=== PATIENT | female | born 1995 | race Caucasian/White ===

== ENCOUNTER → 2016-04-01 | Outpatient (CLI) | payer BC ==
--- NOTE | 2016-04-01 10:07 | MR ---
EXAMINATION TYPE: MR brain wo/w con DATE OF EXAM: 04/01/2016 8:17 AM COMPARISON: MRI brain October 19, 2014 HISTORY: Focal seizures, brain tumor removed 6 yrs ago TECHNIQUE: Multiplanar, multisequence images of the brain and brainstem is performed without and with IV contras t, utilizing 10 mL intravenous MultiHance . FINDINGS: Diffusion weighted images demonstrate no evidence of a recent infarct or other diffusion ab normality. There is redemonstration of left temporal resection cavity measuring 5.9 cm anterior post erior dimension by 4.2 cm in transverse dimension on axial image 11 felt stable from prior. Craniocau sean dimension is roughly 2.5 cm on coronal image 15 felt stable. Some focal edema along posterior asp ect remains present. There is no new significant white matter signal abnormality. The ventricular sy stem and cisternal spaces are normal in size and appearance. The brain volume is age appropriate. Midline structures demonstrate normal morphology. The craniocervical junction appears within normal limits. Post contrast images demonstrate no new or abnormal enhancement. The dural venous sinuses ap pear patent. The visualized paranasal sinuses are clear. Globes are more distorted by artifact on cur rent study. IMPRESSION: Postsurgical changes left temporal level redemonstrated and felt stable. No new suspiciou s enhancement or new findings identified.
== END | disposition home or self-care (01) ==
LOC: RADMRIMAIN 07:39
PROVIDERS: ATTEND Family Medicine
DX: G40.109 Localization-related (focal) (partial) symptomatic epilepsy and epileptic syndromes with simple partial seizures, not intractable, without status epilepticus (principal); Z98.890 Other specified postprocedural states
CPT/HCPCS: 70553; A9577

== ENCOUNTER → 2017-01-02 | Outpatient (CLI) | payer BC ==
--- NOTE | 2017-01-02 15:13 | US ---
EXAMINATION TYPE: US thyroid st tissue head/neck DATE OF EXAM: 01/02/2017 COMPARISON: NONE CLINICAL HISTORY: E04.1 THYROID NODULE. Patient feels tired all the time. GLAND SIZE: Right Lobe: 4.7 x 1.5 x 1.6 cm Overall Parenchyma: homogenous Left Lobe: 3.6 x 1.0 x 1.2 cm Overall Parenchyma: Fairly homogeneous Isthmus Thickness: 0.2 cm NODULES RIGHT: # of nodules measured on right: 0 LEFT: # of nodules measured on left: 0 ISTHMUS: # of nodules measured in the isthmus: 0 Bilateral neck scanned, no evidence of lymphadenopathy. Thyroid gland is normal in size and homogeneous in echotexture without suspicious nodules seen. IMPRESSION: Unremarkable study.
== END | disposition home or self-care (01) ==
LOC: RADUSWWP 14:15
PROVIDERS: ATTEND Family Medicine
DX: E04.1 Nontoxic single thyroid nodule (principal)
CPT/HCPCS: 76536

== ENCOUNTER → 2017-08-07 | Outpatient (CLI) | payer BC ==
[2017-08-07 18:38] LABS: Basophils # (A) 0.1 k/uL (0-0.2); Basophils % (A) 1 %; Eosinophils # (A) 0.2 k/uL (0-0.7); Eosinophils % (A) 2 %; HCT 43.6 % (34.0-46.0); HGB 14.9 gm/dL (11.4-16.0); Lymphocytes # (A) 2.7 k/uL (1.0-4.8); Lymphocytes % (A) 35 %; MCHC 34.1 g/dL (31.0-37.0); MCV 90.9 fL (80.0-100.0); Mean Platelet Volume 7.5; Monocytes # (A) 0.3 k/uL (0-1.0); Monocytes % (A) 4 %; Neutrophils # (A) 4.3 k/uL (1.3-7.7); Neutrophils % (A) 56 %; Platelet Count 243 k/uL (150-450); RDW 11.7 % (11.5-15.5); WBC 7.8 k/uL (3.8-10.6)
[2017-08-07 18:52] LABS: ALT 31 U/L (9-52); AST 27 U/L (14-36); Albumin 4.5 g/dL (3.5-5.0); Alkaline Phosphatase 54 U/L (38-126); Anion Gap 15 mmol/L; Blood Urea Nitrogen 11 mg/dL (7-17); Calcium 9.8 mg/dL (8.4-10.2); Carbon Dioxide 22 mmol/L (22-30); Chloride 105 mmol/L (98-107); Glucose 76 mg/dL (74-99); Sodium 142 mmol/L (137-145); Total Bilirubin 0.3 mg/dL (0.2-1.3); Total Protein 7.4 g/dL (6.3-8.2)
[2017-08-07 19:06] LABS: T4, Free (Free Thyroxine) 0.76 ng/dL (0.78-2.19)
== END | disposition home or self-care (01) ==
LOC: LABWHC1 17:24
PROVIDERS: ATTEND Family Medicine
DX: Z00.00 Encounter for general adult medical examination without abnormal findings (principal); D72.829 Elevated white blood cell count, unspecified; R41.840 Attention and concentration deficit
CPT/HCPCS: 36415; 80053; 80183; 84439; 84443; 85025

== ENCOUNTER → 2018-05-01 | Outpatient (CLI) | payer BC ==
--- NOTE | 2018-05-01 09:54 | MR ---
EXAMINATION TYPE: MR brain wo/w con DATE OF EXAM: 05/01/2018 COMPARISON: 04/01/2016 HISTORY: Focal Seizures, brain tumor removed 2009, F/U TECHNIQUE: Multiplanar, multisequence images of the brain and brainstem is performed without and with IV contras t, utilizing 5.5 mL intravenous Gadavist . FINDINGS: Diffusion weighted images demonstrate no evidence of a recent infarct or other diffusion ab normality. The brain volume is age appropriate. There is redemonstration of left temporal resection cavity measuring 5.9 cm anterior posterior dimens ion by 4.2 cm in transverse dimension on axial image 11 felt stable from prior. Craniocaudal dimensio n is roughly 2.5 cm on coronal image 15 felt stable. Some focal edema along posterior aspect remains present. Midline structures demonstrate normal morphology. The craniocervical junction appears within normal limits. Post contrast images demonstrate no abnormal enhancement. The dural venous sinuses appear pa tent. Very mild changes of chronic sinusitis. Pituitary gland is prominent measuring 8.5 mm but demonstrates homogeneous enhancement. IMPRESSION: 1. Stable postsurgical changes. 2. Stable prominent pituitary gland measuring 8.5 mm with upward convexity. Homogeneous enhancement n oted. Size at the upper limits of normal for patient's age.
== END | disposition home or self-care (01) ==
LOC: RADMRIMAIN 08:53
PROVIDERS: ATTEND Family Medicine
DX: G40.209 Localization-related (focal) (partial) symptomatic epilepsy and epileptic syndromes with complex partial seizures, not intractable, without status epilepticus (principal)
CPT/HCPCS: 70553; A9585

== ENCOUNTER → 2020-12-08 | Outpatient (CLI) | payer BC ==
--- NOTE | 2020-12-08 10:29 | MR ---
EXAMINATION TYPE: MR brain wo con DATE OF EXAM: 12/08/2020 COMPARISON: 05/01/2018 HISTORY: Check up, history of brain tumor. No symptoms. TECHNIQUE: T1-weighted sagittal, T2, FLAIR, and diffusion axial, and T2 coronal coronal views of the brain are submitted. FINDINGS: There is no evidence of acute ischemia. The ventricles, basal cisterns, and sulci overlying the conv exities are consistent with the patient's age. There is no mass effect. There is redemonstration of left temporal resection cavity measuring 5.9 cm anterior posterior dimension by 4.2 cm in transverse dimension on axial image 11 felt stable from prior. Craniocaudal dimension is roughly 2.5 cm on antoinette nal image 15 felt stable. Some focal edema along posterior aspect remains present. Craniocervical junction maintained. Sella turcica has a normal appearance. No cerebellopontine angle mass. Pituitary gland is prominent measuring 8.5 mm unchanged from prior ex am. IMPRESSION: 1. Stable postsurgical change. 2. Stable prominence of the pituitary gland
== END | disposition home or self-care (01) ==
LOC: RADMRIMAIN 08:30
PROVIDERS: ATTEND Family Medicine
DX: E23.7 Disorder of pituitary gland, unspecified (principal); Z98.890 Other specified postprocedural states
CPT/HCPCS: 70551

== ENCOUNTER 2022-01-08 10:05 | Emergency (ER) | payer BC ==
[2022-01-08 10:31] VITALS: PULSE 85; RESP 18; TEMP 98.5
[2022-01-08] MEDS ORDERED: LIDOCAINE 1% INJ 10MG/ML (20 ML MDV) SQ ONE ×2 (10:54→11:04)
[2022-01-08] MEDS ORDERED: DIPH,PERTUS(ACELL)TETVAC-LF 0.5 ML VIAL IM ONE (11:05)
[2022-01-08] MEDS ORDERED: cefTRIAXone 1,000 MG VIAL (IM USE) IM STA (11:05)
--- NOTE | 2022-01-08 11:23 | XR ---
Fourth digit left hand HISTORY: Laceration, trauma and pain 3 views of the fourth digit of left hand There is no radiopaque foreign body. Bone mineralization, joint spaces and alignment are maintained. IMPRESSION: No radiopaque foreign body, no fracture or dislocation.
--- NOTE | 2022-01-08 12:33 | ED ---
General Adult HPI - General Chief complaint: Wound/Laceration Stated complaint: finger lac Time Seen by Provider: 01/08/22 10:54 Source: patient Mode of arrival: ambulatory Limitations: no limitations - History of Present Illness Initial comments: Patient is a 26-year-old female who presents to the emergency department for laceration. Patient states she cut her finger on a metal ring on her dog's leash today. Patient has laceration over left ring finger. She reports minimal pain, no numbness, no tingling. Last tetanus unknown. - Related Data Previous Rx's Medication Instructions Recorded Cephalexin [Keflex] 500 mg PO Q6HR #40 cap 01/08/22 Ibuprofen [Motrin] 800 mg PO Q6HR PRN #30 tab 01/08/22 Sulfamethox-Tmp 800-160Mg [Bactrim 1 each PO Q12HR #20 tab 01/08/22 Ds] Allergies Allergy/AdvReac Type Severity Reaction Status Date / Time No Known Allergies Allergy Verified 01/08/22 10:31 Review of Systems ROS Statement: Those systems with pertinent positive or pertinent negative responses have been documented in the HPI. ROS Other: All systems not noted in ROS Statement are negative. Past Medical History History of Any Multi-Drug Resistant Organisms: None Reported Additional Past Surgical History / Comment(s): 2010 brain surgery, tumor removal Past Psychological History: ADD/ADHD, Depression Smoking Status: Never smoker Past Alcohol Use History: None Reported Past Drug Use History: None Reported General Exam Limitations: no limitations General appearance: alert, in no apparent distress Eye exam: Present: normal appearance, PERRL, EOMI. Absent: scleral icterus, conjunctival injection, periorbital swelling Respiratory exam: Present: normal lung sounds bilaterally. Absent: respiratory distress, wheezes, rales, rhonchi, stridor Cardiovascular Exam: Present: regular rate, normal rhythm, normal heart sounds. Absent: systolic murmur, diastolic murmur, rubs, gallop, clicks Extremities exam: Present: other (3 cm laceration over palmar aspect of left ring finger which begins just distal to the PIP joint. Tendon visualized which does not appear injured. Neurovascularly intact. Full range of motion.) Neurological exam: Present: alert, oriented X3, CN II-XII intact Psychiatric exam: Present: normal affect, normal mood Skin exam: Present: warm, dry, intact, normal color. Absent: rash Course Vital Signs 01/08/22 10:26 Temperature 98.5 F Pulse Rate 85 Respiratory 18 Rate O2 Sat by Pulse 99 Oximetry Procedures - Laceration Laceration #1 Consent Obtained: verbal consent Indication: laceration Site: other (left ring finger palmar) Description: irregular Depth: involves tendon (no injury to tendon appreciated) Anesthesia Technique: nerve block Pre-repair: wound explored, irrigated extensively, deep structures intact Size of Sutures: 5-0 Number of Sutures: 9 Technique: simple, interrupted Patient Tolerated Procedure: well, no complications Medical Decision Making - Medical Decision Making This is a 26-year-old female presented laceration. Tendon is exposed however does not appear to be injured. Full range of motion. Neurovascularly intact. X-ray negative for fracture and foreign body. Laceration was approximately with 9 sutures. Tetanus updated. Patient given IM Rocephin in the emergency department. She will be discharged with Keflex and Bactrim for prophylactic treatment. She will return in 10 days for suture removal. Dr. Asif is my attending. Disposition Clinical Impression: Laceration Disposition: HOME SELF-CARE Condition: Good Instructions (If sedation given, give patient instructions): Care For Your Stitches (ED), Laceration (ED) Additional Instructions: Leave wound uncovered. Keep wound clean and dry. Wash with a mild soap. Take Tylenol or anti-inflammatories such as Motrin for pain. Take antibiotics as directed. Follow-up with primary care provider in 1-2 days. Return for suture removal in 10 days. Report back to the emergency department if you experience new, concerning, or worsening symptoms. Prescriptions: Sulfamethox-Tmp 800-160Mg [Bactrim Ds] 1 each PO Q12HR #20 tab Cephalexin [Keflex] 500 mg PO Q6HR #40 cap Ibuprofen [Motrin] 800 mg PO Q6HR PRN #30 tab PRN Reason: Pain Is patient prescribed a controlled substance at d/c from ED?: No Referrals: Jose Olmos DO [Primary Care Provider] - 1-2 days Time of Disposition: 11:32
== END 2022-01-08 12:23 | disposition home or self-care (01) ==
LOC: EC 10:05
DX: S61.215A Laceration without foreign body of left ring finger without damage to nail, initial encounter (principal); F90.9 Attention-deficit hyperactivity disorder, unspecified type; F32.A Depression, unspecified; Z79.899 Other long term (current) drug therapy; W26.8XXA Contact with other sharp object(s), not elsewhere classified, initial encounter; Z23 Encounter for immunization
CPT/HCPCS: 12002 ×2; 90471 ×2; 96372 ×2; 99283 ×2; 73140; 90715; J2001; J0696

== ENCOUNTER 2023-07-22 08:56 | Emergency (ER) | payer BC ==
[2023-07-22] MEDS: SULFAMETHOX-TMP 800-160MG 1 EACH TAB PO STA (09:49)
[2023-07-22 09:54] VITALS: RESP 18
--- NOTE | 2023-07-22 09:55 | ED ---
Wound/Laceration HPI - General Chief Complaint: Wound/Laceration Stated Complaint: Stitches/complication Time Seen by Provider: 07/22/23 09:19 Source: patient, RN notes reviewed Mode of arrival: ambulatory Limitations: no limitations - History of Present Illness Initial Comments: This is a 28-year-old female who presents to the emergency department for p roble with her sutures. Patient cut her left thigh on what she believes to be a metal roof about a week ago and had sutures done at a different emergency department where the incident took place. States that she was healing fine, however today she started to notice that she had some blood coming from areas where the sutures were placed. Denies any pain associated with this. She is currently taking Keflex for infectious prophylaxis. - Related Data Previous Rx's Medication Instructions Recorded Cephalexin [Keflex] 500 mg PO Q6HR #40 cap 01/08/22 Ibuprofen [Motrin] 800 mg PO Q6HR PRN #30 tab 01/08/22 Sulfamethox-Tmp 800-160Mg [Bactrim 1 each PO Q12HR #20 tab 01/08/22 Ds] Sulfamethox-Tmp 800-160Mg [Bactrim 1 tab PO Q12HR 7 Days #14 tab 07/22/23 DS 800-160 mg] Allergies Allergy/AdvReac Type Severity Reaction Status Date / Time hydrocodone AdvReac Nausea & Verified 07/22/23 09:17 Vomiting Review of Systems ROS Statement: Those systems with pertinent positive or pertinent negative responses have been documented in the HPI. ROS Other: All systems not noted in ROS Statement are negative. Past Medical History History of Any Multi-Drug Resistant Organisms: None Reported Additional Past Surgical History / Comment(s): 2010 brain surgery, tumor removal Past Psychological History: ADD/ADHD, Depression Smoking Status: Never smoker Past Alcohol Use History: Rare Past Drug Use History: None Reported General Exam Limitations: no limitations General appearance: alert, in no apparent distress Head exam: Present: atraumatic, normocephalic, normal inspection Respiratory exam: Present: normal lung sounds bilaterally. Absent: respiratory distress, wheezes, rales, rhonchi, stridor Cardiovascular Exam: Present: regular rate, normal rhythm, normal heart sounds. Absent: systolic murmur, diastolic murmur, rubs, gallop, clicks Extremities exam: Present: other (Laceration to the left inner thigh. There are 2 areas with recent active bleeding and minor visible purulence. No erythema, heat, or induration.) Neurological exam: Present: alert, oriented X3, CN II-XII intact Psychiatric exam: Present: normal affect, normal mood Course Vital Signs 07/22/23 07/22/23 09:14 10:05 Temperature 98 F 98.1 F Pulse Rate 70 82 Respiratory 18 18 Rate Blood Pressure 114/70 136/68 O2 Sat by Pulse 98 Oximetry Medical Decision Making - Medical Decision Making This is a 28-year-old female who presents to the emergency department for bleeding sutures. Was pt. sent in by a medical professional or institution? @ -No Did you speak to anyone other than the patient for history? @ -No Did you review nursing and triage notes? @ -Yes, and I agree, it is accurate with regards to the patient's symptoms. Were old charts reviewed? @ -No Differential Diagnosis? @ -Differential Bleeding Sutures: Injury, infection, wound dehiscence, this is not meant to be an all-inclusive list. EKG interpreted by me (3pts min.)? @ -Not obtained X-rays interpreted by me (1pt min.)? @ -Not obtained CT interpreted by me (1pt min.)? @ -Not obtained U/S interpreted by me (1pt. min.)? @ -Not obtained What testing was considered but not performed? (CT, X-rays, U/S, labs)? Why? @ -None What meds were considered but not given? Why? @ -None Did you discuss the management of the patient with other professionals? @ -No Did you reconcile home meds? @ -No Was smoking cessation discussed for >3mins.? @ -No Was critical care preformed (if so, how long)? @ -No Were there social determinants of health that impacted care today? How? (Homelessness, low income, unemployed, alcoholism, drug addiction, transportation, low edu. Level, literacy, decrease access to med. care, penitentiary, rehab)? @ -No Was there de-escalation of care discussed even if they declined? (Discuss DNR or withdrawal of care, Hospice)? @ -No What co-morbidities impacted this encounter? (DM, HTN, Smoking, COPD, CAD, Cancer, CVA, Hep., AIDS, mental health diagnosis, sleep apnea, morbid obesity)? @ -None Was patient admitted / discharged? @ -Discharged. Physical examination demonstrates 2 areas in the sutures with recent active bleeding. There does appear to be some purulence. Aerobic and anaerobic wound cultures were obtained of these areas. Her leg was also bandaged. Prescription for Bactrim was provided to be taken in conjunction with the Keflex in the event there is any additional infection developing. She will otherwise follow-up with her primary care provider this week for reevaluation. Undiagnosed new problem with uncertain prognosis? @ -None Drug Therapy requiring intensive monitoring for toxicity (Heparin, Nitro, Insulin, Cardizem)? @ -None Were any procedures done? @ -None Diagnosis/symptom? @ -Bleeding sutures Acute, or Chronic, or Acute on Chronic? @ -Acute Uncomplicated (without systemic symptoms) or Complicated (systemic symptoms)? @ -Uncomplicated Side effects of treatment? @ -None Exacerbation, Progression, or Severe Exacerbation] @ -Not applicable Poses a threat to life or bodily function? @ -No Return precautions reviewed in depth, the patient is instructed to return to the emergency department with any new, worsening, or concerning symptoms. Patient verbalized understanding. This case was discussed in detail with the attending ED physician, Dr. Asif. Presentation, findings, and treatment plan discussed in detail as well. Disposition Clinical Impression: Laceration, Cellulitis Disposition: HOME SELF-CARE Additional Instructions: Return to the emergency department with any new, worsening, or concerning symptoms. Take the new antibiotic as prescribed for 7 days in conjunction with the antibiotic you are currently taking. Follow-up with your primary care provider as scheduled. Prescriptions: Sulfamethox-Tmp 800-160Mg [Bactrim DS 800-160 mg] 1 tab PO Q12HR 7 Days #14 tab Is patient prescribed a controlled substance at d/c from ED?: No Referrals: Jose Olmos DO [Primary Care Provider] - 1-2 days Time of Disposition: 09:55
[2023-07-22 10:34] VITALS: BP 136/68; PULSE 82; TEMP 98.1
== END 2023-07-22 10:05 | disposition home or self-care (01) ==
LOC: EC 08:56
DX: S71.112A Laceration without foreign body, left thigh, initial encounter (principal); Z88.8 Allergy status to other drugs, medicaments and biological substances; W26.8XXA Contact with other sharp object(s), not elsewhere classified, initial encounter
CPT/HCPCS: 87070; 87075; 87205; 99283

== ENCOUNTER → 2023-08-28 | Outpatient (CLI) | payer BC ==
--- NOTE | 2023-08-28 21:55 | MR ---
EXAMINATION TYPE: MR brain wo/w con DATE OF EXAM: 08/28/2023 COMPARISON: Prior MRI brain December 08, 2020 and older studies. HISTORY: Previous brain tumor removed 2009, No new symptoms, Hx of seizures TECHNIQUE: Multiplanar, multisequence images of the brain and brainstem is performed without and with IV contras t, utilizing 5.5 mL intravenous Gadavist . FINDINGS: Diffusion weighted images demonstrate no evidence of a recent infarct or other diffusion ab normality. There is redemonstration of left temporal resection cavity measuring approximately 6.7 cm anterior posterior dimension by 4.7 cm in transverse dimension on axial image 14 felt stable from pr ior study. Craniocaudal dimension is roughly 2.8 cm on coronal image 28 felt stable. Some mass effect and mild edema along posterior aspect remains present. No new suspicious nodular enhancement. There is no new significant white matter signal abnormality. The ventricular system and cisternal sp aces remain normal in size and appearance. The brain volume is age appropriate. Midline structures redemonstrate normal morphology. The craniocervical junction appears within endy l limits. Post contrast images demonstrate no new areas of abnormal enhancement. The dural venous si nuses appear patent. The visualized paranasal sinuses are clear. Globes are intact. IMPRESSION: Postsurgical changes left temporal level redemonstrated and felt stable. No new suspiciou s enhancement to suggest neoplastic recurrence.
== END | disposition home or self-care (01) ==
LOC: RADMRIMAIN 17:52
PROVIDERS: ATTEND Family Medicine
DX: G40.509 Epileptic seizures related to external causes, not intractable, without status epilepticus (principal)
CPT/HCPCS: 70553; A9585

== ENCOUNTER → 2023-10-23 | Outpatient (CLI) | payer BC ==
[2023-10-23 18:15] LABS: HCT 40.7 % (37.2-46.3); HGB 13.7 g/dL (12.0-15.0); MCH 30.8 pg (27.0-32.0); MCHC 33.7 g/dL (32.0-37.0); MCV 91.5 FL (80.0-97.0); Mean Platelet Volume 10.1 FL (9.5-12.2); NRBC Per 100 WBC 0 X 10*3/uL (0.00-0.01); Platelet Count 286 X 10*3/uL (140-440); RBC 4.45 X 10*6/uL (4.10-5.20); RDW 11.6 % (11.5-14.5); WBC 6.82 X 10*3/uL (4.50-10.00)
[2023-10-23 18:27] LABS: ALT 14 U/L (8-44); AST 18 U/L (13-35); Albumin 4.6 g/dL (3.8-4.9); Albumin/Globulin Ratio 1.84 Ratio (1.60-3.17); Alkaline Phosphatase 62 U/L (41-126); BUN/Creat Ratio 12.62 Ratio (12.00-20.00); Blood Urea Nitrogen 10.1 mg/dL (9.0-27.0); Calcium 9.3 mg/dL (8.7-10.3); Carbon Dioxide 25.4 mmol/L (21.6-31.8); Chloride 105 mmol/L (96-109); Globulin 2.5 g/dL (1.6-3.3); Glucose 86 mg/dL (70-110); Potassium 3.8 mmol/L (3.5-5.5); Sodium 141 mmol/L (135-145); Total Bilirubin <0.2 mg/dL (0.3-1.2); Total Protein 7.1 g/dL (6.2-8.2)
[2023-10-23 19:43] LABS: Basophils # (A) 0.08 X 10*3/uL (0.00-0.10); Basophils % (A) 1.2 %; Eosinophils # (A) 0.07 X 10*3/uL (0.04-0.35); Lymphocytes # (A) 2.49 X 10*3/uL (0.90-5.00); Lymphocytes % (A) 36.5 %; Monocytes # (A) 0.57 X 10*3/uL (0.20-1.00); Monocytes % (A) 8.4 %; Neutrophils # (A) 3.59 X 10*3/uL (1.80-7.70); Neutrophils % (A) 52.6 %
[2023-10-23 19:44] LABS: Lymphocytes Variant 2+
== END | disposition home or self-care (01) ==
LOC: LABWHC1 16:24
PROVIDERS: ATTEND Family Medicine
DX: R19.7 Diarrhea, unspecified (principal)
CPT/HCPCS: 36415; 80053; 85025; 87045; 87046; 87324